=== PATIENT | female | born 1945 | race Caucasian/White ===

== ENCOUNTER 2016-09-23 09:02 | Outpatient (CLI) | payer MEDICARE, BC ==
[2016-09-23] MEDS ORDERED: BARIUM SULFATE 454 GM TUBE PO ONE (09:58)
== END 2016-09-23 09:03 | disposition home or self-care (01) ==
DX: R13.10 Dysphagia, unspecified (principal)
CPT/HCPCS: 74230; 92611; G8996; G8997; G8998

== ENCOUNTER 2016-10-01 09:49 | Day surgery (SDC) | payer MEDICARE, BC ==
[2016-10-01] MEDS ORDERED: LACTATED RINGERS 1,000 ML IV ONE ×2 (09:57→11:54)
[2016-10-01] MEDS ORDERED: fentaNYL 250 MCG/5 ML VIAL IVP ONE (11:03)
[2016-10-01] MEDS ORDERED: MIDAZOLAM 2 MG/2 ML VIAL IVP ONE (11:03)
[2016-10-01] MEDS ORDERED: LIDO GARGLE 30 ML BOTTLE PO ONE (11:08)
== END 2016-10-01 09:50 | disposition home or self-care (01) ==
PROC: 0DB68ZX Excision of Stomach, Via Natural or Artificial Opening Endoscopic, Diagnostic (ICD-10-PCS; 2016-10-01)
PROC: 0D748ZZ Dilation of Esophagogastric Junction, Via Natural or Artificial Opening Endoscopic (ICD-10-PCS; 2016-10-01)
PROC: 0D738ZZ Dilation of Lower Esophagus, Via Natural or Artificial Opening Endoscopic (ICD-10-PCS; 2016-10-01)
PROC: 0DB58ZX Excision of Esophagus, Via Natural or Artificial Opening Endoscopic, Diagnostic (ICD-10-PCS; principal; 2016-10-01 10:45)
DX: R13.10 Dysphagia, unspecified (principal); K44.9 Diaphragmatic hernia without obstruction or gangrene; R12 Heartburn; I10 Essential (primary) hypertension; G47.00 Insomnia, unspecified; F41.8 Other specified anxiety disorders
CPT/HCPCS: 43239; 43248; A9270; J3010; J7120

== ENCOUNTER 2016-10-01 16:01 | Inpatient (IN) | payer MEDICARE, BC ==
[2016-10-01] MEDS ORDERED: MAG HYDROX/AL HYDROX/SIMETH 30 ML UDC PO STA (16:59)
[2016-10-01] MEDS ORDERED: LIDOCAINE VISCOUS 2% 15 ML UDC MM STA (16:59)
[2016-10-01] MEDS ORDERED: SODIUM CHLORIDE 0.9% 1,000 ML IV ONE ×2 (16:59→18:45)
[2016-10-01] MEDS ORDERED: HYDROmorphone 1 MG/ML SYRINGE IVP STA (17:01)
[2016-10-01] MEDS ORDERED: ONDANSETRON 4 MG/2 ML VIAL IVP STA (17:01)
[2016-10-01] MEDS ORDERED: ONDANSETRON 4 MG/2 ML VIAL ONE (17:20)
[2016-10-01] MEDS ORDERED: HYDROmorphone 1 MG/ML SYRINGE ONE (17:20)
[2016-10-01] MEDS ORDERED: PIPERACILLIN/TAZOBACTAM 3.375 GM in SODIUM CHLORIDE 0.9% MINIBAG 100 ML IV STA (17:52)
[2016-10-01] MEDS ORDERED: LACTATED RINGERS 1,000 ML IV ONE (18:58)
[2016-10-01] MEDS ORDERED: GLYCOPYRROLATE 1 MG/5 ML VIAL IVP ONE (19:20)
[2016-10-01] MEDS ORDERED: PROPOFOL 200 MG/20 ML VIAL IVP ONE (19:20)
[2016-10-01] MEDS ORDERED: MIDAZOLAM 2 MG/2 ML VIAL IVP ONE (19:20)
[2016-10-01] MEDS ORDERED: KETAMINE 500 MG/10 ML VIAL IVP ONE (19:20)
[2016-10-01] MEDS ORDERED: ONDANSETRON 4 MG/2 ML VIAL IVP PRN (20:03)
[2016-10-01] MEDS ORDERED: PHENOL THROAT SPRAY 177 ML MM PRN (20:03)
[2016-10-01] MEDS ORDERED: BENZOCAINE SPRAY MM PRN (20:03)
[2016-10-01] MEDS ORDERED: SODIUM CHLORIDE FLUSH 0.9% 10 ML SYRINGE IVP PRN (20:03)
[2016-10-01] MEDS ORDERED: BENZOCAINE/TETRACAINE/BUTAMBEN 20 GM MM PRN (20:03)
[2016-10-01] MEDS ORDERED: ACETAMINOPHEN 1,000 MG/100 ML 100 ML IV PRN (20:03)
[2016-10-01] MEDS ORDERED: PROCHLORPERAZINE 10 MG/2 ML VIAL IVP PRN (20:03)
[2016-10-01] MEDS ORDERED: PIPERACILLIN/TAZOBACTAM 3.375 GM in SODIUM CHLORIDE 0.9% MINIBAG 100 ML IV SCH (22:00)
[2016-10-01] MEDS: LORazepam 2 MG/ML SYRINGE IVP PRN (23:33)
[2016-10-01] MEDS: PIPERACILLIN/TAZOBACTAM 3.375 GM in SODIUM CHLORIDE 0.9% MINIBAG 100 ML IV SCH (23:41)
[2016-10-02] MEDS ORDERED: PIPERACILLIN/TAZOBACTAM 3.375 GM in SODIUM CHLORIDE 0.9% MINIBAG 100 ML IV SCH ×2
[2016-10-02] MEDS: PANTOPRAZOLE 40 MG VIAL IVP SCH ×2 (00:27→09:38)
[2016-10-02] MEDS: LORazepam 2 MG/ML SYRINGE IVP PRN ×5 (01:45→08:24)
[2016-10-02] MEDS: LACTATED RINGERS 1,000 ML IV SCH ×2 (04:09→10:36)
[2016-10-02] MEDS: PIPERACILLIN/TAZOBACTAM 3.375 GM in SODIUM CHLORIDE 0.9% MINIBAG 100 ML IV SCH ×2 (07:33→12:19)
[2016-10-02] MEDS: SODIUM CHLORIDE FLUSH 0.9% 10 ML SYRINGE IVP SCH (07:35)
[2016-10-02] MEDS ORDERED: GLUCAGON 1 MG/ML VIAL SUBQ PRN (08:11)
[2016-10-02] MEDS ORDERED: DEXTROSE 5% 1,000 ML IV PRN (08:11)
[2016-10-02] MEDS ORDERED: DEXTROSE GEL 37.5 GM TUBE PO PRN (08:11)
[2016-10-02] MEDS ORDERED: DEXTROSE 50% ABBOJECT 25 GM/50 ML SYRINGE IVP PRN (08:11)
[2016-10-02] MEDS ORDERED: D5.45NS W/20 MEQ KCL 1,000 ML IV SCH (09:00)
== END 2016-10-02 11:55 | disposition short-term general hospital (02) | DRG 919 ==
PROC: 0D9680Z Drainage of Stomach with Drainage Device, Via Natural or Artificial Opening Endoscopic (ICD-10-PCS; 2016-10-01)
PROC: 0DB58ZX Excision of Esophagus, Via Natural or Artificial Opening Endoscopic, Diagnostic (ICD-10-PCS; 2016-10-01)
PROC: 0DB68ZX Excision of Stomach, Via Natural or Artificial Opening Endoscopic, Diagnostic (ICD-10-PCS; 2016-10-01)
PROC: 0D748ZZ Dilation of Esophagogastric Junction, Via Natural or Artificial Opening Endoscopic (ICD-10-PCS; 2016-10-01)
PROC: 0D738ZZ Dilation of Lower Esophagus, Via Natural or Artificial Opening Endoscopic (ICD-10-PCS; 2016-10-01)
PROC: 0DJ08ZZ Inspection of Upper Intestinal Tract, Via Natural or Artificial Opening Endoscopic (ICD-10-PCS; principal; 2016-10-01 18:54)
DX: K91.72 Accidental puncture and laceration of a digestive system organ or structure during other procedure (principal); K25.1 Acute gastric ulcer with perforation; K22.3 Perforation of esophagus; Y83.8 Other surgical procedures as the cause of abnormal reaction of the patient, or of later complication, without mention of misadventure at the time of the procedure; Z88.2 Allergy status to sulfonamides; Z90.49 Acquired absence of other specified parts of digestive tract; R13.10 Dysphagia, unspecified; K44.9 Diaphragmatic hernia without obstruction or gangrene; R12 Heartburn; I10 Essential (primary) hypertension; G47.00 Insomnia, unspecified; F41.8 Other specified anxiety disorders

== ENCOUNTER 2016-10-02 13:36 | Outpatient (CLI) | payer MEDICARE, BC | END 2016-10-02 13:37 | disposition short-term general hospital (02) | LOC: EMS 13:36 | PROVIDERS: ATTEND Surgery | DX: K22.3 Perforation of esophagus (principal) | CPT/HCPCS: A0170; A0425; A0426 ==

== ENCOUNTER 2016-10-09 11:50 | Outpatient (CLI) | payer MEDICARE, BC | END 2016-10-09 11:51 | disposition home or self-care (01) | DX: K22.3 Perforation of esophagus (principal); D64.9 Anemia, unspecified; R53.83 Other fatigue ==

== ENCOUNTER 2021-07-26 15:11 | Outpatient (CLI) | payer MEDICARE, BC ==
--- NOTE | 2021-07-26 16:41 | Ultrasound Report ---
PROCEDURE: Duplex Ext Veins Right INDICATIONS: R LEG EDEMA TECHNIQUE: Real-time imaging, as well as color and pulse Doppler interrogation, were performed of the lower extr emity deep veins from the inguinal ligament to the popliteal fossa. COMPARISON: None. FINDINGS: Technically suboptimal study secondary to patient body habitus. The deep veins are normally compressible, and free of intraluminal thrombus. Color and pulse Doppler demonstrate normal phasic intraluminal flow. There is normal augmentation response to distal compre ssion maneuver. The calf veins were not well seen. In the medial popliteal fossa, there is an avascular fluid collection measuring 2.6 x 2.5 x 2.1 cm. A nterior to the knee joint, there is a fluid collection measuring 5.4 x 1.2 x 6.9 cm, probably a joint effusion. IMPRESSION: 1. No visualized right lower extremity DVT. 2. Probable right knee joint effusion and Lundberg's cyst. 3. Technically limited study secondary to body habitus. Reviewed by: Amber Mensah MD on 07/26/2021 4:40 PM PST Approved by: Amber Mensah MD on 07/26/2021 4:40 PM PST Station ID: [id number]
== END 2021-07-26 15:12 | disposition home or self-care (01) ==
LOC: DI 15:11
PROVIDERS: ATTEND Internal Medicine
DX: R60.0 Localized edema (principal); R93.6 Abnormal findings on diagnostic imaging of limbs

== ENCOUNTER 2021-08-06 14:25 | Outpatient (CLI) | payer MEDICARE, BC ==
--- NOTE | 2021-08-06 18:43 | MRI Report ---
PROCEDURE: Knee RT W/O INDICATIONS: RIGHT KNEE PAIN TECHNIQUE: Noncontrast sagittal PD fast spin echo and T2 fast spin echo with fat saturation, sagittal 3-D gradie nt sequence with fat saturation; coronal T1 spin echo and PD fast spin echo with fat saturation, and axial PD fast spin echo with fat saturation through the knee. COMPARISON: None. Findings: Some images are degraded by motion artifact. Medial meniscus: Linear surfacing signal in the posterior horn, compatible with tear. T2 hyperintense signal about the medial retinaculum, compatible with injury. Lateral meniscus: Surfacing signal in the anterior horn, which may reflect tear versus motion artifac t. LIGAMENTS/TENDONS: Patellar tendon: Intact. Distal quadriceps tendon: Intact. Hoffa's fat pad: No evidence of fibrosis or mass. PCL: Intact. ACL: Intact. Lateral collateral ligament complex: No significant abnormality. Posterolateral corner: No significant abnormality. Medial collateral ligament: Periligamentous edema, compatible grade 1/2 injury. MARROW: T2 hyperintense/T1 hypointense signal seen in the subchondral medial compartment, measuring 9.6 x 9.7 mm, as well as patella, compatible with osteochondral injury. CARTILAGE: Deficiency of the hyaline cartilage overlying the medial compartment. Muscles: No significant edema or atrophy. Joint effusion/Lundberg's cyst: Small to moderate joint effusion. No Lundberg's cyst. Subcutaneous soft tissues: Reticulated and confluent T2 hyperintense signal overlying the patella ten don. IMPRESSION: 1. Signal in the posterior horn, medial meniscus as detailed above, compatible with meniscal tear. 2. Signal in the anterior horn, lateral meniscus, which may reflect tear versus motion artifact. 3. Grade 1/2 MCL and medial patella retinaculum injury. 4. Osteochondral injury of the medial compartment and patella as detailed above. Reviewed by: Kin Allison MD on 08/06/2021 6:41 PM PST Approved by: Kin Allison MD on 08/06/2021 6:41 PM PST Station ID: [id number]
== END 2021-08-06 14:26 | disposition home or self-care (01) ==
LOC: DI 14:25
PROVIDERS: ATTEND Internal Medicine
DX: M25.861 Other specified joint disorders, right knee (principal); M25.561 Pain in right knee; M25.461 Effusion, right knee

== ENCOUNTER 2023-01-13 12:38 | Outpatient (CLI) | payer MEDICARE, BC ==
--- NOTE | 2023-01-13 16:41 | XRAY Report ---
PROCEDURE: Ankle 3 View LT INDICATIONS: LT ANKLE PX TECHNIQUE: 2 views of the ankle were acquired. COMPARISON: None. FINDINGS: Bones: Ankle fracture, as follows: Lateral malleolus / distal fibula: None Medial malleolus: Fracture present. Posterior malleolus: No displaced fracture. Medial clear space: Less than 4 mm, not widened. Lateral clear space: Less than 5 mm, within normal limits. Soft tissues: Tibiotalar effusion present. Ankle swelling present. IMPRESSION: Intra-articular fracture of the medial malleolus. No radiographic features of an unstable fracture. Reviewed by: Clayton Cleveland on 01/13/2023 4:40 PM PDT Approved by: Clayton Cleveland on 01/13/2023 4:40 PM PDT Station ID: [id number]
== END 2023-01-13 12:39 | disposition home or self-care (01) ==
LOC: DI 12:38
PROVIDERS: ATTEND Internal Medicine
DX: S82.52XA Displaced fracture of medial malleolus of left tibia, initial encounter for closed fracture (principal)

== ENCOUNTER 2023-02-26 20:17 | Emergency (ER) | payer MEDICARE, BC ==
--- NOTE | 2023-02-26 20:44 | ED Physician Documentation ---
PD HPI UPPER EXT INJURY - Stated complaint Stated Complaint: RT SHOULDER PX - Chief complaint Chief Complaint: Ext Problem - History obtained from History obtained from: Patient - History of Present Illness Location: Right - Additonal information Additional information: 77-year-old female presents from home by private vehicle for right shoulder pain and head injury. Patient states that she frequently falls out of bed and 4 days ago she fell out of bed, landing on her right shoulder and striking her face. Denies loss of consciousness, denies use of blood thinners. And striking her face. Denies loss of consciousness, denies use of blood thinners. She was at an orthopedic appointment for a separate issue and she mentioned her shoulder. She was referred to the emergency department for evaluation. Review of Systems Constitutional: denies: Fever, Chills Cardiac: denies: Chest pain / pressure, Palpitations, Calf pain : denies: Frequency, Hesitancy, Unable to Void Musculoskeletal: reports: Extremity pain, Joint pain. 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 : None HEENT: Chronic sinusitis Psych: Depression, Anxiety Musculoskeletal: None Derm: None - Past Surgical History Past Surgical History: Yes General: Cholecystectomy /MECHANICAL ENGINEERING OFFICER: Hysterectomy HEENT: Cataracts, Other - Present Medications Home Medications: Ambulatory Orders Medication Instructions Recorded Confirmed Montelukast Sodium 10 mg PO DAILY 09/30/16 10/01/16 Multivitamin [Multivitamins] 1 tab PO DAILY 09/30/16 10/01/16 Zolpidem Tartrate [Zolpidem 12.5 tab PO QPM PRN 09/30/16 10/02/16 Tartrate ER] Venlafaxine [Effexor] 150 mg PO DAILY 10/02/16 10/02/16 - Allergies Allergies/Adverse Reactions: Allergies Allergy/AdvReac Type Severity Reaction Status Date / Time Iodinated Contrast Media Allergy Unknown Verified 02/26/23 20:29 Sulfa (Sulfonamide Allergy Unknown Verified 02/26/23 20:29 Antibiotics) Contrast Dye Allergy Unknown Uncoded 02/26/23 20:29 - Social History Does the pt smoke?: No Smoking Status: Never smoker Does the pt drink ETOH?: No Does the pt have substance abuse?: No - Immunizations Immunizations are current?: No Immunizations: TDAP >10years/unknown - POLST Patient has POLST: No PD ED PE NORMAL - Vitals Vital signs reviewed: Yes - General General: Alert and oriented X 3, No acute distress, Well developed/nourished - HEENT HEENT: PERRL, EOMI, Other (bruising R cheek, healing) - Neck Neck: Supple, no meningeal sign - Cardiac Cardiac: RRR, Strong equal pulses - Respiratory Respiratory: No respiratory distress, Clear bilaterally - Abdomen Abdomen: Soft, Non tender, Non distended - Extremities Extremities: No deformity, No edema, Other (R shoulder tenderness to palpation) - Neuro Neuro: Alert and oriented X 3, media relations intern 2-12 intact, No motor deficit, Normal speech - Psych Psych: Normal mood, Normal affect Results - Vitals Vitals: Vital Signs - 24 hr 02/26/23 02/26/23 02/26/23 20:18 21:27 22:18 Temperature 37.0 C 36.5 C Heart Rate 72 63 69 Respiratory 19 16 16 Rate Blood Pressure 151/87 H 174/91 H 124/89 H O2 Saturation 98 97 97 Oxygen O2 Source Room air PD Medical Decision Making - ED course Complexity details: reviewed results, re-evaluated patient, considered differential, d/w patient, d/w family ED course: Musculoskeletal pain after falling out of bed several days ago. Neurovascularly intact, no obvious deformity. X-ray showed no acute fracture. CT imaging shows no acute traumatic injury. Patient relieved to know that she has no fractures. She states that she just got rails for the side of her bed so she should not be falling out of bed anymore. Counseled to take Tylenol and Motrin as needed for pain and to follow-up with orthopedic surgery as needed. Departure - Departure Disposition: 01 Home, Self Care Clinical Impression: Pain in extremity Condition: Stable Instructions: ED Contusion Upper Ext Forms: PCP List Discharge Date/Time: 02/26/23 22:30
--- NOTE | 2023-02-26 21:59 | CT Report ---
PROCEDURE: HEAD WO INDICATIONS: FALL FROM BED WITH HEAD INJURY TECHNIQUE: Noncontrast 4.5 mm thick angled axial sections acquired from the foramen magnum to the vertex. For r adiation dose reduction, the following was used: automated exposure control, adjustment of mA and/or kV according to patient size. COMPARISON: None. FINDINGS: Image quality: Excellent. CSF spaces: There is moderate cerebral volume loss with prominence of the ventricles and sulci. Basa l cisterns are patent. No extra-axial fluid collections. Brain: No intracranial hemorrhage, mass, or mass effect. Avendano-white matter interface is preserved. T here are subcortical and periventricular white matter hypodensities consistent with moderate chronic small vessel ischemic changes. Skull and face: Calvarium and visualized facial bones are intact, without suspicious lesions. Sinuses: Visualized sinuses and mastoids are clear. IMPRESSION: 1. No acute traumatic intracranial abnormality. 2. Moderate cerebral volume loss and chronic white matter small vessel ischemic changes. Reviewed by: Jorge Wisdom MD on 02/26/2023 9:58 PM PDT Approved by: Jorge Wisdom MD on 02/26/2023 9:58 PM PDT Station ID: [id number]
--- NOTE | 2023-02-26 22:06 | XRAY Report ---
PROCEDURE: Shoulder 3 View RT INDICATIONS: PAIN/TENDERNESS R SHOULDER/LIMITED MOBILITY/FELL TECHNIQUE: 3 views of the shoulder were acquired. COMPARISON: None. FINDINGS: Bones: No fractures or dislocations. No suspicious bony lesions. Visualized ribs appear intact. Soft tissues: No suspicious soft tissue calcifications. IMPRESSION: No acute bony abnormality. Reviewed by: Jorge Wisdom MD on 02/26/2023 10:04 PM PDT Approved by: Jorge Wisdom MD on 02/26/2023 10:04 PM PDT Station ID: [id number]
[2023-02-26 22:21] VITALS: BP 124/89
== END 2023-02-26 22:30 | disposition home or self-care (01) ==
LOC: ED 20:17
DX: M25.511 Pain in right shoulder (principal)
CPT/HCPCS: 99283; 99284

== ENCOUNTER 2023-03-19 15:49 | Outpatient (CLI) | payer MEDICARE, BC ==
--- NOTE | 2023-03-20 12:00 | MRI Report ---
PROCEDURE: SHOULDER WO - RT INDICATIONS: PAIN IN RIGHT SHOULDER TECHNIQUE: Noncontrast oblique coronal T2 fast spin echo with fat saturation, oblique sagittal T1 spin echo and T2 fast spin echo with fat saturation, axial T1 spin echo and T2 fast spin echo with fat saturation t hrough the shoulder. COMPARISON: None. FINDINGS: Image quality: Excellent. Rotator cuff: There is full-thickness rupture of distal supraspinatus and infraspinatus at their inse rtions on humeral head with up to 4 cm medial retraction of torn tendon fibers to the level of acromi oclavicular joint. Low-grade intrasubstance partial thickness tear involving distal subscapularis is seen. Mild to moderate supraspinatus and infraspinatus muscle atrophy is seen on sagittal images. Bones and bursae: No bone marrow contusions or fractures. Moderate acromioclavicular joint osteoarth ritic changes are noted with joint space narrowing, subchondral sclerosis and downward osteophyte for mation. Moderate to large joint effusion and subacromial subdeltoid bursal fluid is seen, no gross lo ose bodies. Capsule and soft tissues: There is no evidence of focal labral tear. The glenohumeral ligaments are g rossly intact. The long head of the biceps tendon appears thickened with intrasubstance T2 hyperinten se signal. The rotator interval appears normal, without fibrosis. The coracohumeral ligament is nor mal in thickness. IMPRESSION: 1. Full-thickness rupture of distal supraspinatus and infraspinatus at their insertion on humeral hea d with up to 4 cm medial retraction of torn tendon fibers to the level of acromioclavicular joint. Lo w-grade intrasubstance partial thickness tear involving distal subscapularis. Mild to moderate supras pinatus and infraspinatus muscle atrophy. 2. Moderate acromioclavicular joint osteoarthritis. No fracture or dislocation. Moderate to large leda unt of joint effusion and subacromial subdeltoid bursal fluid. 3. No evidence of focal labral tear. 4. Tendinosis and low-grade intrasubstance partial thickness tear involving proximal long head of bic eps tendon. Reviewed by: Juan Garcia MD on 03/20/2023 11:58 AM PDT Approved by: Juan Garcia MD on 03/20/2023 11:58 AM PDT Station ID: [id number]
== END 2023-03-19 15:50 | disposition home or self-care (01) ==
LOC: DI 15:49
PROVIDERS: ATTEND Internal Medicine
DX: M75.121 Complete rotator cuff tear or rupture of right shoulder, not specified as traumatic (principal); M19.011 Primary osteoarthritis, right shoulder; S46.111A Strain of muscle, fascia and tendon of long head of biceps, right arm, initial encounter

== ENCOUNTER 2023-03-19 15:50 | Outpatient (CLI) | payer MEDICARE, BC ==
--- NOTE | 2023-03-20 17:49 | XRAY Report ---
PROCEDURE: Shoulder 3 View RT INDICATIONS: PAIN IN RIGHT SHOULDER TECHNIQUE: 3 views of the shoulder were acquired. COMPARISON: None. FINDINGS: Bones: No fractures or dislocations. Mild to moderate acromioclavicular joint and glenohumeral join t osteophytic changes are seen. No suspicious bony lesions. Visualized ribs appear intact. Soft tissues: No suspicious soft tissue calcifications. IMPRESSION: No acute bony abnormality. Mild to moderate right shoulder joint osteoarthritis. Reviewed by: Juan Garcia MD on 03/20/2023 5:47 PM PDT Approved by: Juna Garcia MD on 03/20/2023 5:47 PM PDT Station ID: [id number]
== END 2023-03-19 15:51 | disposition home or self-care (01) ==
LOC: DI 15:50
PROVIDERS: ATTEND Internal Medicine
DX: M19.011 Primary osteoarthritis, right shoulder (principal)

== ENCOUNTER 2023-06-05 14:05 | Outpatient (CLI) | payer MEDICARE, BC ==
--- NOTE | 2023-06-05 15:06 | DEXA Report ---
PROCEDURE: Dexa Spine and/or Hip INDICATIONS: POST MENOPAUSAL TECHNIQUE: Dual energy x-ray absorptiometry (DXA) was performed on a [employer] System. Regions measur ed are the AP Spine, femoral neck, and if needed forearm. COMPARISON: None. FINDINGS: Lumbar Spine: Bone Mineral Density 0.930 g/cm/cm,T score -2.1. Left Femoral Neck: Bone Mineral Density 0.618 g/cm/cm, T score -3.0. Left Hip: Bone Mineral Density 0.749 g/cm/cm,T score -2.1. (T score greater or equal to -1.0: NORMAL) (T score from -1.1 to -2.4: OSTEOPENIA) (T score less than or equal to -2.5 to: OSTEOPOROSIS) Impression: By WHO criteria, this patient has osteoporosis. Patients with diagnosis of osteoporosis or osteopenia should have regular bone mineral density assess ment. For those eligible for Medicare, routine testing is allowed once every 2 years. Testing frequ ency can be increased for patients who have rapidly progressing disease or for those who are receivin g medical therapy to restore bone mass. Reviewed by: Kim Escalera MD on 06/05/2023 3:04 PM PST Approved by: Kim Escalera MD on 06/05/2023 3:04 PM PST Station ID: [id number]
== END 2023-06-05 14:06 | disposition home or self-care (01) ==
LOC: DI 14:05
PROVIDERS: ATTEND Internal Medicine
DX: Z78.0 Asymptomatic menopausal state (principal); M81.0 Age-related osteoporosis without current pathological fracture